=== PATIENT | female | born 1975 | race Caucasian/White ===

== ENCOUNTER → 2018-07-20 | Outpatient (CLI) | payer BC ==
--- NOTE | 2018-07-20 14:58 | RAD ---
Maxillofacial CT without contrast for history of chronic sinusitis. TECHNIQUE: Contiguous helical 1 mm axial images are obtained through the base of the mandible to the vertex. Sagittal and coronal reformations are evaluated. FINDINGS: There is streak artifact from dental amalgam. There is a trace amount of fluid within the left mastoid air cells. No air-fluid levels are identified. The bilateral maxillary, ethmoidal, frontal, and sphenoid sinuses are all clear. There is a trace amount of mucosal thickening involving the ethmoid air cells. The bilateral ostiomeatal complexes are widely patent. Turbinates are normal. There is mild nasal septal deviation to the left. No significant soft tissue abnormalities are seen. No intracranial abnormalities are evident. IMPRESSION: 1. Placement of fluid within the left mastoid air cells. 2. Minimal mucosal thickening of the ethmoid sinuses, with no CT evidence of acute or chronic sinusitis. 3. No predisposing anatomic abnormalities of the sinuses. Electronically signed by: Hany Garcia MD (07/20/2018 2:55 PM) [id number]
== END | disposition home or self-care (01) ==
LOC: CT 10:10
PROVIDERS: ATTEND Otolaryngology
DX: J32.9 Chronic sinusitis, unspecified (principal); J34.2 Deviated nasal septum
CPT/HCPCS: 70486